=== PATIENT | male | born 1995 | race Caucasian/White ===

== ENCOUNTER 2017-01-12 16:35 | Emergency (ER) | payer OTHER ==
[2017-01-12 16:37] VITALS: BP 131/85; PULSE 72; RESP 14; TEMP 98.4; O2SAT 97
[2017-01-12] MEDS ORDERED: SODIUM CHLORIDE 0.9% FLUSH 10 ML FLUSH IV FLUSH PRN (20:00)
[2017-01-12 20:04] VITALS: RESP 18; O2SAT 98
[2017-01-12 20:14] VITALS: BP 124/81; PULSE 72; RESP 18; O2SAT 99
--- NOTE | 2017-01-12 20:20 | PD ---
HPI Chief Complaint: GI Complaint Time Seen by Provider: 19:50 Travel History International Travel<30 days: No Contact w/Intl Traveler<30days: No Traveled to known affect area: No History of Present Illness HPI 21-year-old male that presents to the ED for evaluation of possible foreign body ingestion. Per patient since Wednesday his been having right upper quadrant abdominal pain as well as feeling like he has an upset stomach. Per patient on Wednesday he ate a couple of burger's and there is concern that he might have eaten some metal from the metal brush used to clean the ground. They actually noticed that there was some of this metal hairs on the burgers but he ate his versus to pick for anybody to notice that if he had eaten any of them. Per patient is concerned he might have some of this. He states that yesterday he noticed that he still wasn't really bloody but it was dark. Per patient his initial for him. He denies any nausea or vomiting. No diarrhea. Pain has been steady on the right upper quadrant. She still has his gallbladder. He has no allergies to medication. No other medical issues. Has had his appendix removed. Per patient the pain is 4 out of 10 and is not severe. Family and patient were just concerned about the foreign body ingestion and possible perforation. [facility] Past Medical History Medical History: Denies Significant Hx Diminished Hearing: No Tetanus Vaccination: Unknown Influenza Vaccination: No Past Surgical History Appendectomy: Yes Social History Alcohol Use: Yes (OCCASSIONALLY) Tobacco Use: No Substance Use: No Allergies-Medications (Allergen,Severity, Reaction): Coded Allergies: No Known Allergies (Unverified , 01/12/17) Reported Meds & Prescriptions Reported Meds & Active Scripts Active No Active Prescriptions or Reported Medications Review of Systems Except as stated in HPI: all other systems reviewed are Neg Physical Exam Narrative GENERAL: SKIN: Warm and dry. HEAD: Atraumatic. Normocephalic. EYES: Pupils equal and round. No scleral icterus. No injection or drainage. ENT: No nasal bleeding or discharge. Mucous membranes pink and moist. Tongue is midline. No uvula deviation. NECK: Trachea midline. No JVD. CARDIOVASCULAR: Regular rate and rhythm. No murmurs, S3, S4. RESPIRATORY: No accessory muscle use. Clear to auscultation. Breath sounds equal bilaterally. GASTROINTESTINAL: Abdomen soft, non-tender, negative murphys sign, nondistended. Hepatic and splenic margins not palpable. MUSCULOSKELETAL: Extremities without clubbing, cyanosis, or edema. No obvious deformities. Full range of motion of the upper and lower extremities bilaterally. 2+ pulses bilaterally. NEUROLOGICAL: Awake and alert. No obvious cranial nerve deficits. Motor grossly within normal limits. Five out of 5 muscle strength in the arms and legs. Normal speech. PSYCHIATRIC: Appropriate mood and affect; insight and judgment normal. Data Data Last Documented VS Vital Signs Date Time Temp Pulse Resp B/P (MAP) Pulse Ox O2 Delivery O2 Flow Rate FiO2 01/12/17 20:14 72 18 124/81 (95) 99 Room Air 01/12/17 16:37 98.4 Orders Orders Complete Blood Count With Diff (01/12/17 19:58) Comprehensive Metabolic Panel (01/12/17 19:58) Lipase (01/12/17 19:58) Urinalysis - C+S If Indicated (01/12/17 19:58) Iv Access Insert/Monitor (01/12/17 19:58) Ecg Monitoring (01/12/17 19:58) Oximetry (01/12/17 19:58) Sodium Chloride 0.9% Flush (Ns Flush) (01/12/17 20:00) Ct Abd/Pel W/O Iv Contrast (01/12/17 ) Ed Discharge Order (01/12/17 21:10) Labs Laboratory Tests Test 01/12/17 20:09 White Blood Count 5.2 TH/MM3 Red Blood Count 5.06 MIL/MM3 Hemoglobin 15.5 GM/DL Hematocrit 44.5 % Mean Corpuscular Volume 87.9 FL Mean Corpuscular Hemoglobin 30.7 PG Mean Corpuscular Hemoglobin Concent 34.9 % Red Cell Distribution Width 12.8 % Platelet Count 187 TH/MM3 Mean Platelet Volume 8.3 FL Neutrophils (%) (Auto) 60.0 % Lymphocytes (%) (Auto) 30.6 % Monocytes (%) (Auto) 6.9 % Eosinophils (%) (Auto) 1.7 % Basophils (%) (Auto) 0.8 % Neutrophils # (Auto) 3.1 TH/MM3 Lymphocytes # (Auto) 1.6 TH/MM3 Monocytes # (Auto) 0.4 TH/MM3 Eosinophils # (Auto) 0.1 TH/MM3 Basophils # (Auto) 0.0 TH/MM3 CBC Comment DIFF FINAL Differential Comment Urine Color YELLOW Urine Turbidity CLEAR Urine pH 6.5 Urine Specific [place] 1.022 Urine Protein TRACE mg/dL Urine Glucose (UA) NEG mg/dL Urine Ketones NEG mg/dL Urine Occult Blood NEG Urine Nitrite NEG Urine Bilirubin NEG Urine Urobilinogen LESS THAN 2.0 MG/DL Urine Leukocyte Esterase NEG Urine WBC LESS THAN 1 /hpf Urine Mucus FEW /lpf Microscopic Urinalysis Comment CULT NOT INDICATED Blood Urea Nitrogen 13 MG/DL Creatinine 1.03 MG/DL Random Glucose 83 MG/DL Total Protein 7.9 GM/DL Albumin 4.7 GM/DL Calcium Level 9.4 MG/DL Alkaline Phosphatase 52 U/L Aspartate Amino Transf (AST/SGOT) 14 U/L Alanine Aminotransferase (ALT/SGPT) 31 U/L Total Bilirubin 1.0 MG/DL Sodium Level 138 MEQ/L Potassium Level 3.8 MEQ/L Chloride Level 103 MEQ/L Carbon Dioxide Level 29.7 MEQ/L Anion Gap 5 MEQ/L Estimat Glomerular Filtration Rate 89 ML/MIN Lipase 112 U/L [facility] Medical Decision Making Medical Screen Exam Complete: Yes Emergency Medical Condition: Yes Medical Record Reviewed: Yes Interpretation(s) CBC & BMP Diagram 01/12/17 20:09 Total Protein 7.9, Albumin 4.7, Calcium Level 9.4, Alkaline Phosphatase 52, Aspartate Amino Transf (AST/SGOT) 14 L, Alanine Aminotransferase (ALT/SGPT) 31, Total Bilirubin 1.0 Last Impressions Abdomen/Pelvis CT 01/12/17 0000 Signed Impressions: Service Date/Time: Thursday, January 12, 2017 20:17 - CONCLUSION: Essentially unremarkable study except for hemisacralization of L5 on the right side. Amanda Hayward MD lipase WNL Differential Diagnosis Foreign body versus acute abdomen versus gastroenteritis versus peptic ulcer disease versus normal exam versus bleeding Narrative Course 21-year-old male that presents to the ED for eval edition of possible foreign body ingestion. Patient was properly examined and was found to have signs and symptoms of unclear etiology at this time. Family and patient did show me the metal shards that he might have eaten. They do appear to be sharp but they're less than 2 cm. Will do labs and imaging. Labs and imaging were essentially unremarkable. Hemoccult was done and was slightly positive. This tenderness appears to be likely more related to gastroenteritis. No sign of acute disease. Patient was reassured. Patient was given a prescription for ranitidine to help with symptoms. Patient was told to drink plenty of fluids. Liquid diet until better. See ED for any worsening symptoms. Follow up with PCP. Diagnosis Primary Impression: Gastroenteritis Patient Instructions: General Instructions Additional Instructions: Take med as prescribed. liquid diet. Follow with PCP. See ED worsening symptoms. Med/Other Pt SpecificInfo: Prescription(s) given Scripts Ranitidine (Ranitidine) 150 Mg Tab 150 MG PO BID for Pain, #15 TAB 0 Refills Prov: Jenny Rodriguez MD 01/12/17 Disposition: 01 DISCHARGE HOME Condition: Stable Jose Rodriguez Jan 12, 2017 20:20
[2017-01-12 20:29] LABS: AUTOMATED NEUTROPHIL # 3.1 TH/MM3 (1.8-7.7); BASOPHIL % 0.8 % (0.0-2.0); EOSINOPHIL # 0.1 TH/MM3 (0-0.4); EOSINOPHIL % 1.7 % (0.0-4.0); HEMATOCRIT 44.5 % (39.0-51.0); HEMO FLAGS DIFF FINAL; LYMPH % 30.6 % (9.0-44.0); LYMPHOCYTE # 1.6 TH/MM3 (1.0-4.8); MEAN CELL VOLUME 87.9 FL (80.0-100.0); MEAN CORPUSCULAR HEMOGLOBIN 30.7 PG (27.0-34.0); MEAN CORPUSCULAR HGB CONC 34.9 % (32.0-36.0); MONO % 6.9 % (0.0-8.0); PLATELET COUNT 187 TH/MM3 (150-450); RED BLOOD COUNT 5.06 MIL/MM3 (4.50-5.90); RED CELL DISTRIBUTION WIDTH 12.8 % (11.6-17.2); WHITE BLOOD COUNT 5.2 TH/MM3 (4.0-11.0)
[2017-01-12 20:42] LABS: ALT (GPT) 31 U/L (12-78); ANION GAP 5 MEQ/L (5-15); AST (GOT) 14 U/L (15-37); BICARBONATE 29.7 MEQ/L (21.0-32.0); BLOOD UREA NITROGEN 13 MG/DL (7-18); CHLORIDE 103 MEQ/L (98-107); GLOMERULAR FILTRATION RATE 89 ML/MIN (>89); POTASSIUM 3.8 MEQ/L (3.5-5.1); SODIUM (NA) 138 MEQ/L (136-145)
[2017-01-12 20:45] LABS: ALKALINE PHOSPHATASE 52 U/L (45-117)
[2017-01-12 20:52] LABS: BLOOD, URINE NEG (NEG); COMMENT (UR) CULT NOT INDICATED; CULTURE IF INDICATED CULT NOT INDICATED; GLUCOSE,URINE NEG (NEG); KETONE, URINE NEG (NEG); MUCUS URINE FEW /lpf (OCC); NITRITE,URINE NEG (NEG); PH, URINE 6.5 (5.0-8.5); URINE COLOR YELLOW (YELLW/STRAW)
--- NOTE | 2017-01-12 20:56 | RADRPT ---
EXAM DATE/TIME: 01/12/2017 20:17 [place] COMPARISON: No previous studies available for comparison. INDICATIONS : Abdomen pain. Possible ingested metal bristles from grill brush. ORAL CONTRAST: No oral contrast ingested. RADIATION DOSE: 15.39 CTDIvol (mGy) MEDICAL HISTORY : None SURGICAL HISTORY : None. ENCOUNTER: Initial ACUITY: 1 day PAIN SCALE: 3/10 LOCATION: abdomen TECHNIQUE: Volumetric scanning of the abdomen and pelvis was performed. Using automated exposure control and adjustment of the mA and/or kV according to patient size, radiation dose was kept as low as reasonably achievable to obtain optimal diagnostic quality images. DICOM format image data is av ailable electronically for review and comparison. FINDINGS: CT Abdomen: The liver, spleen, pancreas, kidneys, adrenals are unremarkable. There is no evidence for any appreciable pathological adenopathy, free fluid, or bowel obstruction. There is no evidence for any stones in the kidneys or the course of the ureters on either side. There is no hydronephrosis. CT pelvis: There is no evidence for mass, abscess formation, or any significant adenopathy within the pelvis. There is hemisacralization of L5 on the right side. There is no evidence for a radiopaque fo reign body for technique. CONCLUSION: Essentially unremarkable study except for hemisacralization of L5 on the right side. Amanda Hayward MD on January 12, 2017 at 20:50 Board Certified Radiologist. This report was verified electronically.
[2017-01-12] MEDS ORDERED: RANI150T PO (21:11)
== END 2017-01-12 21:52 | disposition home or self-care (01) ==
LOC: NEPE 16:35
DX: K52.9 Noninfective gastroenteritis and colitis, unspecified (principal)
CPT/HCPCS: 74176; 80053; 81001; 83690; 85025; 99284